=== PATIENT | male | born 1945 | race Caucasian/White ===

== ENCOUNTER → 2017-04-01 | Outpatient (CLI) | payer MEDICARE | LOC: MW.CHGS 08:00 | PROVIDERS: ATTEND Surgery | DX: C32.9 Malignant neoplasm of larynx, unspecified (principal) | CPT/HCPCS: 99214 ==

== ENCOUNTER 2017-04-16 11:39 | Day surgery (SDC) | payer MEDICARE ==
[~2017-04-16 11:39] MED LIST: Lactated Ringers 1,000 ML IV SCH; Propofol 200 MG/20 ML SDV ONE; Sodium Chloride 0.9% 10 ML Syringe FLUSH PRN; Sodium Chloride 0.9% 2.5 ML Syringe FLUSH PRN
--- NOTE | 2017-04-16 12:52 | PCM.PREANE ---
Preanesthetic Assessment - Anesthesia/Transfusion/Family Hx Anesthesia History: Prior Anesthesia Without Reaction Other Type of Anesthesia Reaction Comment: Denies any known problems in the past Family History of Anesthesia Reaction: No Transfusion History: No Prior Transfusion(s) Intubation History: Unknown - Review of Systems General: No Symptoms Pulmonary: No Symptoms Cardiovascular: No Symptoms Neurological: No Symptoms Other: Reports: None - Physical Assessment O2 Sat by Pulse Oximetry: 96 Respiratory Rate: 16 Vital Signs: Last Vital Signs Temp 36.6 C 04/16/17 11:58 Pulse 74 04/16/17 11:58 Resp 16 04/16/17 11:58 BP 132/79 04/16/17 11:58 Pulse Ox 96 04/16/17 11:58 Height: 1.8 m Weight: 93.44 kg ASA Class: 3 Mental Status: Alert & Oriented x3 Airway Class: Mallampati = 2 Dentition: Reports: Normal Dentition Thyro-Mental Finger Breadths: 3 Mouth Opening Finger Breadths: 2 ROM/Head Extension: Limited/Partial Lungs: Clear to auscultation, Normal respiratory effort Cardiovascular: Regular Rate, Regular Rhythm - Allergies Allergies/Adverse Reactions: Allergies Allergy/AdvReac Type Severity Reaction Status Date / Time amoxicillin Allergy Nausea and Verified 04/14/17 17:06 Vomiting enalapril maleate Allergy Rash Verified 04/14/17 17:06 [From Vasotec] enalaprilat dihydrate Allergy Rash Verified 04/14/17 17:06 [From Vasotec] - Blood Blood Available: No - Anesthesia Plan Pre-Op Medication Ordered: None Beta Orestes: Carvedilol Med Last Dose Date: 04/16/17 Med Last Dose Time: 06:00 - Acknowledgements Anesthesia Type Planned: MAC Pt an Appropriate Candidate for the Planned Anesthesia: Yes Alternatives and Risks of Anesthesia Discussed w Pt/Guardian: Yes Pt/Guardian Understands and Agrees with Anesthesia Plan: Yes PreAnesthesia Questionnaire HEENT History: Reports: Allergic Rhinitis, Cataract, Impaired Vision, Other ( See Below) Other HEENT History: wears glasses, hx of fractured nose Cardiovascular History: Reports: CAD, High Cholesterol, Hypertension, VT Other Cardiovascular History: hx of VT 6 years ago, denies current chest pain and SOB Respiratory History: Reports: None Gastrointestinal History: Reports: Other (See Below) Other Gastrointestinal History: hx of colon cancer Genitourinary History: Reports: None Musculoskeletal History: Reports: Arthritis, Fracture, Gout Other Musculoskeletal History: 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 Hx of sigmoid colon cancer. Dermatologic History: Reports: None - Past Surgical History Head Surgeries/Procedures: Reports: None HEENT Surgical History: Reports: Cataract Surgery, Tonsillectomy, Other (See Below) Other HEENT Surgeries/Procedures: hx of cancer of the larynx Cardiovascular Surgical History: Reports: Coronary Artery Stent Respiratory Surgical History: Reports: None GI Surgical History: Reports: Colon (sigmoid colon resection for cancer, PEG tube placement), Colonoscopy, EGD, Hernia, Abdominal, Other (See Below) Other GI Surgeries/Procedures: sigmoid colon resection, insertion and removal of gastrostomy tube Male Surgical History: Reports: None Endocrine Surgical History: Reports: None Neurological Surgical History: Reports: None Musculoskeletal Surgical History: Reports: None Oncologic Surgical History: Reports: Other (See Below) Other Oncologic Surgeries/Procedures: sigmoid colon resection Dermatological Surgical History: Reports: None - SUBSTANCE USE Smoking Status *Q: Former Smoker Tobacco Use Within Last Twelve Months: No Days Per Week of Alcohol Use: 7 Number of Drinks Per Day: 4 Total Drinks Per Week: 28 Recreational Drug Use History: No - HOME MEDS Home Medications: Home Meds Allopurinol [Allopurinol] 100 mg PO DAILY 09/14/14 [History] Aspirin/Calcium Carbonate/Mag [Aspirin Buffered 325 mg Tab] 325 mg PO DAILY [History] Calcium Carbonate [Tums Extra Strength] 2 tab PO ASDIRECTED PRN 09/14/14 [ History] Calcium Polycarbophil [Fibercon] 4 tab PO DAILY 09/14/14 [History] Carvedilol [Carvedilol] 25 mg PO BID 09/14/14 [History] Cholecalciferol (Vitamin D3) [Vitamin D] 1,000 unit PO DAILY 09/14/14 [History] Colchicine [Colcrys] 1 tab PO BID 09/14/14 [History] Cyanocobalamin (Vitamin B12) [Vitamin B12] 500 mcg PO DAILY 04/14/17 [History] Furosemide 0.5 mg PO ASDIRECTED PRN 04/14/17 [History] Lisinopril 5 mg PO DAILY 04/14/17 [History] Loperamide HCl [Imodium A-D] 2 mg PO ASDIRECTED PRN 04/14/17 [History] Ranitidine HCl 150 mg PO ASDIRECTED PRN 04/14/17 [History] atorvaSTATin [Lipitor] 10 mg PO DAILY 04/14/17 [History] - CURRENT (IN HOUSE) MEDS Current Meds: Current Medications Lactated Ringer's (Ringers, Lactated) 1,000 mls @ 125 mls/hr IV ASDIRECTED MARK Last Admin: 04/16/17 12:00 Dose: 125 mls/hr Sodium Chloride (Saline Flush) 10 ml FLUSH ASDIRECTED PRN PRN Reason: Keep Vein Open Sodium Chloride (Saline Flush) 2.5 ml FLUSH ASDIRECTED PRN PRN Reason: Keep Vein Open Discontinued Medications Propofol (Diprivan 20 Ml) Confirm Administered Dose 200 mg .ROUTE .STK-MED ONE Stop: 04/16/17 06:54
--- NOTE | 2017-04-16 13:35 | PCM.OPNOTE ---
- General Post-Op/Procedure Note Date of Surgery/Procedure: 04/16/17 Operative Procedure(s): Diagnostic EGD Findings: Esophageal mucosa in mid esophagus appeared to be plaque like in nature. Biopsies taken from this area as it corresponds to the area on PET scan. Hiatal hernia. Pre Op Diagnosis: Esophageal lesion on PET Post-Op Diagnosis: Mucosal changes in mid esophagus, hiatal hernia Anesthesia Technique: MAC Primary Surgeon: Jessie Conklin Condition: Good
--- NOTE | 2017-04-16 13:50 | PCM.POSTAN ---
POST ANESTHESIA ASSESSMENT - MENTAL STATUS Mental Status: alert, oriented - RESPIRATORY Respiratory Status: respiratory rate WNL, airway patent, O2 saturation stable - CARDIOVASCULAR CV Status: pulse rate WNL, blood pressure stable - GASTROINTESTINAL GI Status: no symptoms - POST OP HYDRATION Hydration Status: adequate & stable - OBSERVATIONS Free Text/Narrative:: no anesthesia problems
[2017-04-16 13:57] VITALS: BP 132/72
--- NOTE | 2017-04-16 14:46 | PCM48HPAN ---
Post Anesthesia Note - EVALUATION WITHIN 48HRS OF ANESTHETIC Vital Signs in Normal Range: Yes Patient Participated in Evaluation: Yes Respiratory Function Stable: Yes Airway Patent: Yes Cardiovascular Function Stable: Yes Hydration Status Stable: Yes Pain Control Satisfactory: Yes Nausea and Vomiting Control Satisfactory: Yes Mental Status Recovered: Yes
--- NOTE | 2017-04-16 19:38 | OR ---
SURGEON: FARIDEH CHAPPELL MD DATE OF PROCEDURE: 04/16/2017 PREOPERATIVE DIAGNOSIS: Esophageal lesion. POSTOPERATIVE DIAGNOSES: Esophageal lesion, hiatal hernia. PROCEDURE PERFORMED: Diagnostic esophagogastroduodenoscopy with biopsies. INSTRUMENT USED: Olympus endoscope. ANESTHESIA: MAC. EXTENT OF EXAM: To the second portion of duodenum. PREPARATION: Good. LIMITATIONS: None. INDICATIONS: The patient is a 71-year-old male with a history of cancer of the larynx. For the past 2 years, he has had a lesion noted on PET scan that lights up in the midesophagus. The patient came to see me for possible EGD. After reviewing the images, the decision was made to perform a diagnostic EGD with biopsies of the area. We discussed the procedure as well as expected perioperative course. We discussed the risks, including bleeding, infection, or damage to surrounding structures, including perforation. The patient verbalized understanding and wished to proceed. PROCEDURE IN DETAIL: The patient was brought to the endoscopy suite and placed in a beach chair position. A time-out was completed verifying the patient's name, age, date of , allergies, and procedure to be performed. A bite-block was placed in the patient's mouth and monitored anesthesia care was induced. Continuous oxygen was provided via nasal cannula throughout the procedure. After adequate sedation was achieved, the Olympus endoscope was placed over the patient's tongue and advanced under direct visualization to the second portion of the duodenum. Photograph was taken of the second portion of duodenum. The scope was then pulled back while examining the mucosa of the upper GI tract. The duodenum appeared normal. The scope was brought into the stomach and a photograph was taken of the pylorus and the esophageal hiatus. The patient has a type 1 hiatal hernia. The gastric mucosa appeared normal. The scope was then brought into the hiatal hernia and a photograph was taken. There were no changes within the hernia sac itself. A single biopsy was taken of the GE junction and sent as distal esophagus mucosa. The scope was then slowly pulled back while examining the remainder of the esophageal mucosa. About the mid esophagus there appeared to be a plaque like lesion that corresponded to the findings on the PET scan. Multiple biopsies were taken of this site and sent as mid esophagus mucosa. All bleeding ceased on its own. The remainder of the esophageal mucosa appeared normal. The scope was removed from the patient and the procedure terminated. ENDOSCOPIC DIAGNOSES: Midesophageal lesion, hiatal hernia. RECOMMENDATION: Follow up in clinic in 2 weeks. ARAMIS LOPEZ /[id number]
== END 2017-04-16 14:05 | disposition home or self-care (01) ==
LOC: MW.SDS 11:39
PROVIDERS: ATTEND Surgery
DX: K22.70 Barrett's esophagus without dysplasia (principal); K44.9 Diaphragmatic hernia without obstruction or gangrene
CPT/HCPCS: 43239; J7120; 00740; 88305; J2704

== ENCOUNTER 2024-09-10 11:52 | Inpatient (IN) | payer MEDICARE, OTHER ==
[2024-09-10] MEDS: Sodium Chloride 0.9% 1,000 ML IV ONE (12:47)
[2024-09-10] MEDS: Morphine 2 MG/ML SYRINGE IVPUSH ONE (12:47)
[2024-09-10] MEDS: Ondansetron 4 MG/2 ML SDV IVPUSH ONE (12:47)
[2024-09-10 12:49] LABS: BASOPHILS ABSOLUTE AUTO 0.01 K/uL (0.00-0.20); BASOPHILS PERCENT AUTO 0.2 % (0.0-1.0); EOSINOPHILS ABSOLUTE AUTO 0.01 K/uL (0.00-0.45); EOSINOPHILS PERCENT AUTO 0.2 % (0.0-6.0); HEMATOCRIT 39.3 % (42.0-52.0); HEMOGLOBIN 13.5 g/dL (14.0-18.0); IMMATURE GRAN ABSOLUTE AUTO 0.01 K/uL (0.00-0.05); IMMATURE GRAN PERCENT AUTO 0.2 % (0.0-0.4); LYMPHOCYTES ABSOLUTE AUTO 0.53 K/uL (1.00-4.80); LYMPHOCYTES PERCENT AUTO 8.3 % (24.0-44.0); MEAN CORPUSCULAR HEMOGLOBIN 34.8 pg (28.0-32.0); MEAN CORPUSCULAR HGB CONC 34.4 g/dL (32.0-36.0); MEAN CORPUSCULAR VOLUME 101.3 fL (83.0-99.0); MEAN PLATELET VOLUME 8.7 fL (9.4-12.4); MONOCYTES ABSOLUTE AUTO 0.76 K/uL (0.00-0.80); MONOCYTES PERCENT AUTO 11.9 % (0.0-8.0); NEUTROPHILS ABSOLUTE AUTO 5.04 K/uL (1.80-7.70); NEUTROPHILS PERCENT AUTO 79.2 % (41.0-71.0); PLATELET COUNT,PLT 131 K/uL (150-400); RED BLOOD CELL COUNT 3.88 M/uL (4.52-5.90); WHITE BLOOD CELL COUNT,WBC 6.36 K/uL (3.9-11.3)
[2024-09-10 13:05] LABS: INR 1.11 (0.86-1.11)
[2024-09-10 13:12] LABS: ALBUMIN 3.3 g/dL (3.4-5.0); BILIRUBIN TOTAL 2.7 mg/dL (0.2-1.0); CALCIUM 8.9 mg/dL (8.5-10.1); CARBON DIOXIDE,CO2 28.4 mmol/L (21.0-32.0); CREATININE 1.2 mg/dL (0.8-1.3); EST CRCL DRUG DOSING (CG) 51.42 mL/min; POTASSIUM,K 3.7 mmol/L (3.5-5.1); PROTEIN TOTAL,TP 6.5 g/dL (6.4-8.2)
[2024-09-10] MEDS: Iopamidol 755 MG/ML 500 ML Multipack Bottle IVPUSH STA (15:56)
[2024-09-10] MEDS ORDERED: Ondansetron 4 MG Tab.DIS PO PRN (18:24)
[2024-09-10] MEDS ORDERED: Naloxone 0.4 MG/ML SDV IVPUSH PRN (18:24)
[2024-09-10] MEDS ORDERED: oxyCODONE 5 MG Tab PO PRN (18:24)
[2024-09-10] MEDS: Enoxaparin 40 MG/0.4 ML Syringe SUBCUT SCH (20:44)
[2024-09-10] MEDS: Sodium Chloride 0.9% 1,000 ML IV SCH (22:12)
[2024-09-11] MEDS: Morphine 2 MG/ML SYRINGE IVPUSH PRN (01:52)
[2024-09-11] MEDS: Pantoprazole 40 MG Tab.CR PO SCH (06:30)
[2024-09-11 06:39] LABS: BASOPHILS ABSOLUTE AUTO 0.02 K/uL (0.00-0.20); BASOPHILS PERCENT AUTO 0.4 % (0.0-1.0); EOSINOPHILS ABSOLUTE AUTO 0.02 K/uL (0.00-0.45); EOSINOPHILS PERCENT AUTO 0.4 % (0.0-6.0); HEMATOCRIT 37.8 % (42.0-52.0); HEMOGLOBIN 12.7 g/dL (14.0-18.0); IMMATURE GRAN ABSOLUTE AUTO 0.01 K/uL (0.00-0.05); IMMATURE GRAN PERCENT AUTO 0.2 % (0.0-0.4); LYMPHOCYTES ABSOLUTE AUTO 0.65 K/uL (1.00-4.80); LYMPHOCYTES PERCENT AUTO 12.5 % (24.0-44.0); MEAN CORPUSCULAR HEMOGLOBIN 34.7 pg (28.0-32.0); MEAN CORPUSCULAR HGB CONC 33.6 g/dL (32.0-36.0); MEAN CORPUSCULAR VOLUME 103.3 fL (83.0-99.0); MEAN PLATELET VOLUME 9.6 fL (9.4-12.4); MONOCYTES ABSOLUTE AUTO 0.69 K/uL (0.00-0.80); MONOCYTES PERCENT AUTO 13.2 % (0.0-8.0); NEUTROPHILS ABSOLUTE AUTO 3.82 K/uL (1.80-7.70); NEUTROPHILS PERCENT AUTO 73.3 % (41.0-71.0); PLATELET COUNT,PLT 105 K/uL (150-400); RED BLOOD CELL COUNT 3.66 M/uL (4.52-5.90); WHITE BLOOD CELL COUNT,WBC 5.21 K/uL (3.9-11.3)
[2024-09-11 06:47] LABS: INR 1.11 (0.86-1.11)
[2024-09-11 07:18] LABS: A/G RATIO 0.9 (0.9-1.6); BILIRUBIN TOTAL 2.1 mg/dL (0.2-1.0); CALCIUM 8.5 mg/dL (8.5-10.1); EST CRCL DRUG DOSING (CG) 61.7 mL/min; POTASSIUM,K 4.1 mmol/L (3.5-5.1); PROTEIN TOTAL,TP 6.2 g/dL (6.4-8.2)
[2024-09-11] MEDS: Carvedilol 6.25 MG Tab PO SCH (08:00)
[2024-09-11] MEDS: Acetaminophen 325 MG Tab PO PRN (08:08)
[2024-09-11] MEDS ORDERED: atorvaSTATin 10 MG Tab PO SCH (09:00)
[2024-09-11] MEDS: atorvaSTATin 10 MG Tab PO SCH (20:46)
[2024-09-12 06:20] LABS: BASOPHILS ABSOLUTE AUTO 0.01 K/uL (0.00-0.20); BASOPHILS PERCENT AUTO 0.2 % (0.0-1.0); EOSINOPHILS ABSOLUTE AUTO 0.04 K/uL (0.00-0.45); EOSINOPHILS PERCENT AUTO 0.8 % (0.0-6.0); HEMATOCRIT 35.8 % (42.0-52.0); HEMOGLOBIN 12.3 g/dL (14.0-18.0); IMMATURE GRAN ABSOLUTE AUTO 0.02 K/uL (0.00-0.05); IMMATURE GRAN PERCENT AUTO 0.4 % (0.0-0.4); LYMPHOCYTES ABSOLUTE AUTO 0.54 K/uL (1.00-4.80); LYMPHOCYTES PERCENT AUTO 10.4 % (24.0-44.0); MEAN CORPUSCULAR HEMOGLOBIN 34.7 pg (28.0-32.0); MEAN CORPUSCULAR HGB CONC 34.4 g/dL (32.0-36.0); MEAN CORPUSCULAR VOLUME 101.1 fL (83.0-99.0); MEAN PLATELET VOLUME 9.4 fL (9.4-12.4); MONOCYTES ABSOLUTE AUTO 0.59 K/uL (0.00-0.80); MONOCYTES PERCENT AUTO 11.3 % (0.0-8.0); NEUTROPHILS ABSOLUTE AUTO 4.01 K/uL (1.80-7.70); NEUTROPHILS PERCENT AUTO 76.9 % (41.0-71.0); PLATELET COUNT,PLT 116 K/uL (150-400); RED BLOOD CELL COUNT 3.54 M/uL (4.52-5.90); WHITE BLOOD CELL COUNT,WBC 5.21 K/uL (3.9-11.3)
[2024-09-12 06:50] LABS: CALCIUM 8.6 mg/dL (8.5-10.1); CARBON DIOXIDE,CO2 25.4 mmol/L (21.0-32.0); CREATININE 0.9 mg/dL (0.8-1.3); EST CRCL DRUG DOSING (CG) 68.56 mL/min; POTASSIUM,K 3.5 mmol/L (3.5-5.1)
[2024-09-13 06:36] LABS: BASOPHILS ABSOLUTE AUTO 0.02 K/uL (0.00-0.20); BASOPHILS PERCENT AUTO 0.4 % (0.0-1.0); EOSINOPHILS ABSOLUTE AUTO 0.05 K/uL (0.00-0.45); EOSINOPHILS PERCENT AUTO 1.1 % (0.0-6.0); HEMATOCRIT 36.7 % (42.0-52.0); HEMOGLOBIN 12.6 g/dL (14.0-18.0); IMMATURE GRAN ABSOLUTE AUTO 0.01 K/uL (0.00-0.05); IMMATURE GRAN PERCENT AUTO 0.2 % (0.0-0.4); LYMPHOCYTES ABSOLUTE AUTO 0.56 K/uL (1.00-4.80); LYMPHOCYTES PERCENT AUTO 11.9 % (24.0-44.0); MEAN CORPUSCULAR HEMOGLOBIN 34.8 pg (28.0-32.0); MEAN CORPUSCULAR HGB CONC 34.3 g/dL (32.0-36.0); MEAN CORPUSCULAR VOLUME 101.4 fL (83.0-99.0); MEAN PLATELET VOLUME 9.1 fL (9.4-12.4); MONOCYTES ABSOLUTE AUTO 0.59 K/uL (0.00-0.80); MONOCYTES PERCENT AUTO 12.6 % (0.0-8.0); NEUTROPHILS ABSOLUTE AUTO 3.47 K/uL (1.80-7.70); NEUTROPHILS PERCENT AUTO 73.8 % (41.0-71.0); PLATELET COUNT,PLT 122 K/uL (150-400); RED BLOOD CELL COUNT 3.62 M/uL (4.52-5.90)
[2024-09-13 07:06] LABS: CALCIUM 8.6 mg/dL (8.5-10.1); CARBON DIOXIDE,CO2 25.9 mmol/L (21.0-32.0); CREATININE 0.9 mg/dL (0.8-1.3); EST CRCL DRUG DOSING (CG) 68.56 mL/min; POTASSIUM,K 3.5 mmol/L (3.5-5.1)
[2024-09-13] MEDS: Polyethylene Glycol 3350 Powder 17 GM Packet PO SCH (12:08)
[2024-09-14 08:12] LABS: BASOPHILS ABSOLUTE AUTO 0.02 K/uL (0.00-0.20); BASOPHILS PERCENT AUTO 0.4 % (0.0-1.0); EOSINOPHILS ABSOLUTE AUTO 0.11 K/uL (0.00-0.45); EOSINOPHILS PERCENT AUTO 2.1 % (0.0-6.0); HEMATOCRIT 36.5 % (42.0-52.0); HEMOGLOBIN 12.8 g/dL (14.0-18.0); IMMATURE GRAN ABSOLUTE AUTO 0.01 K/uL (0.00-0.05); IMMATURE GRAN PERCENT AUTO 0.2 % (0.0-0.4); LYMPHOCYTES ABSOLUTE AUTO 0.66 K/uL (1.00-4.80); LYMPHOCYTES PERCENT AUTO 12.5 % (24.0-44.0); MEAN CORPUSCULAR HEMOGLOBIN 35.3 pg (28.0-32.0); MEAN CORPUSCULAR HGB CONC 35.1 g/dL (32.0-36.0); MEAN CORPUSCULAR VOLUME 100.6 fL (83.0-99.0); MEAN PLATELET VOLUME 8.9 fL (9.4-12.4); MONOCYTES ABSOLUTE AUTO 0.59 K/uL (0.00-0.80); MONOCYTES PERCENT AUTO 11.2 % (0.0-8.0); NEUTROPHILS PERCENT AUTO 73.6 % (41.0-71.0); PLATELET COUNT,PLT 125 K/uL (150-400); RED BLOOD CELL COUNT 3.63 M/uL (4.52-5.90); WHITE BLOOD CELL COUNT,WBC 5.29 K/uL (3.9-11.3)
[2024-09-14 08:34] LABS: A/G RATIO 0.8 (0.9-1.6); ALBUMIN 2.9 g/dL (3.4-5.0); BILIRUBIN TOTAL 1.7 mg/dL (0.2-1.0); CALCIUM 8.8 mg/dL (8.5-10.1); CARBON DIOXIDE,CO2 28.4 mmol/L (21.0-32.0); EST CRCL DRUG DOSING (CG) 61.7 mL/min; PROTEIN TOTAL,TP 6.6 g/dL (6.4-8.2)
[2024-09-14] MEDS: Aspirin 81 MG Tab.Chew PO SCH (09:27)
[2024-09-14] MEDS: Allopurinol 100 MG Tab PO SCH (09:28)
[2024-09-14] MEDS: Pantoprazole 40 MG Tab.CR PO SCH (09:29)
[2024-09-15 05:28] LABS: BASOPHILS ABSOLUTE AUTO 0.02 K/uL (0.00-0.20); BASOPHILS PERCENT AUTO 0.5 % (0.0-1.0); EOSINOPHILS ABSOLUTE AUTO 0.14 K/uL (0.00-0.45); EOSINOPHILS PERCENT AUTO 3.5 % (0.0-6.0); HEMATOCRIT 35.4 % (42.0-52.0); HEMOGLOBIN 12.1 g/dL (14.0-18.0); IMMATURE GRAN ABSOLUTE AUTO 0.01 K/uL (0.00-0.05); IMMATURE GRAN PERCENT AUTO 0.3 % (0.0-0.4); LYMPHOCYTES ABSOLUTE AUTO 0.66 K/uL (1.00-4.80); LYMPHOCYTES PERCENT AUTO 16.5 % (24.0-44.0); MEAN CORPUSCULAR HEMOGLOBIN 34.5 pg (28.0-32.0); MEAN CORPUSCULAR HGB CONC 34.2 g/dL (32.0-36.0); MEAN CORPUSCULAR VOLUME 100.9 fL (83.0-99.0); MEAN PLATELET VOLUME 8.9 fL (9.4-12.4); NEUTROPHILS ABSOLUTE AUTO 2.76 K/uL (1.80-7.70); NEUTROPHILS PERCENT AUTO 69.2 % (41.0-71.0); PLATELET COUNT,PLT 112 K/uL (150-400); RED BLOOD CELL COUNT 3.51 M/uL (4.52-5.90); WHITE BLOOD CELL COUNT,WBC 3.99 K/uL (3.9-11.3)
[2024-09-15 06:07] LABS: A/G RATIO 0.7 (0.9-1.6); ALBUMIN 2.6 g/dL (3.4-5.0); BILIRUBIN TOTAL 1.4 mg/dL (0.2-1.0); CALCIUM 9.1 mg/dL (8.5-10.1); CARBON DIOXIDE,CO2 28.2 mmol/L (21.0-32.0); EST CRCL DRUG DOSING (CG) 61.7 mL/min; PROTEIN TOTAL,TP 6.2 g/dL (6.4-8.2)
[2024-09-16 05:37] LABS: BASOPHILS ABSOLUTE AUTO 0.02 K/uL (0.00-0.20); BASOPHILS PERCENT AUTO 0.5 % (0.0-1.0); EOSINOPHILS ABSOLUTE AUTO 0.13 K/uL (0.00-0.45); EOSINOPHILS PERCENT AUTO 3.2 % (0.0-6.0); HEMATOCRIT 33.3 % (42.0-52.0); HEMOGLOBIN 11.5 g/dL (14.0-18.0); IMMATURE GRAN ABSOLUTE AUTO 0.02 K/uL (0.00-0.05); IMMATURE GRAN PERCENT AUTO 0.5 % (0.0-0.4); LYMPHOCYTES ABSOLUTE AUTO 0.77 K/uL (1.00-4.80); LYMPHOCYTES PERCENT AUTO 18.7 % (24.0-44.0); MEAN CORPUSCULAR HEMOGLOBIN 34.5 pg (28.0-32.0); MEAN CORPUSCULAR HGB CONC 34.5 g/dL (32.0-36.0); MONOCYTES ABSOLUTE AUTO 0.55 K/uL (0.00-0.80); MONOCYTES PERCENT AUTO 13.3 % (0.0-8.0); NEUTROPHILS ABSOLUTE AUTO 2.63 K/uL (1.80-7.70); NEUTROPHILS PERCENT AUTO 63.8 % (41.0-71.0); PLATELET COUNT,PLT 128 K/uL (150-400); RED BLOOD CELL COUNT 3.33 M/uL (4.52-5.90); WHITE BLOOD CELL COUNT,WBC 4.12 K/uL (3.9-11.3)
[2024-09-16 05:58] LABS: A/G RATIO 0.8 (0.9-1.6); ALBUMIN 2.7 g/dL (3.4-5.0); BILIRUBIN TOTAL 1.4 mg/dL (0.2-1.0); CALCIUM 8.9 mg/dL (8.5-10.1); CARBON DIOXIDE,CO2 29.2 mmol/L (21.0-32.0); EST CRCL DRUG DOSING (CG) 61.7 mL/min
[2024-09-16] MEDS ORDERED: Polyethylene Glycol 3350 Powder 17 GM Packet PO PRN (11:03)
[2024-09-16] MEDS: Calcium Carbonate/Vitamin D3 1500 MG-400 Units Tab PO SCH (13:42)
[2024-09-17 05:59] LABS: BASOPHILS ABSOLUTE AUTO 0.01 K/uL (0.00-0.20); BASOPHILS PERCENT AUTO 0.3 % (0.0-1.0); EOSINOPHILS ABSOLUTE AUTO 0.12 K/uL (0.00-0.45); HEMATOCRIT 34.3 % (42.0-52.0); HEMOGLOBIN 11.8 g/dL (14.0-18.0); LYMPHOCYTES ABSOLUTE AUTO 0.75 K/uL (1.00-4.80); MEAN CORPUSCULAR HEMOGLOBIN 34.7 pg (28.0-32.0); MEAN CORPUSCULAR HGB CONC 34.4 g/dL (32.0-36.0); MEAN CORPUSCULAR VOLUME 100.9 fL (83.0-99.0); MEAN PLATELET VOLUME 8.6 fL (9.4-12.4); MONOCYTES PERCENT AUTO 12.7 % (0.0-8.0); NEUTROPHILS ABSOLUTE AUTO 2.57 K/uL (1.80-7.70); PLATELET COUNT,PLT 138 K/uL (150-400); WHITE BLOOD CELL COUNT,WBC 3.95 K/uL (3.9-11.3)
[2024-09-17 06:22] LABS: CALCIUM 8.8 mg/dL (8.5-10.1); CARBON DIOXIDE,CO2 29.5 mmol/L (21.0-32.0); EST CRCL DRUG DOSING (CG) 61.7 mL/min
[2024-09-17] MEDS: Docusate Sodium 100 MG Cap PO SCH (08:27)
[2024-09-19 07:40] LABS: BASOPHILS ABSOLUTE AUTO 0.01 K/uL (0.00-0.20); BASOPHILS PERCENT AUTO 0.3 % (0.0-1.0); EOSINOPHILS ABSOLUTE AUTO 0.08 K/uL (0.00-0.45); EOSINOPHILS PERCENT AUTO 2.4 % (0.0-6.0); HEMATOCRIT 31.9 % (42.0-52.0); HEMOGLOBIN 11.1 g/dL (14.0-18.0); IMMATURE GRAN ABSOLUTE AUTO 0.01 K/uL (0.00-0.05); IMMATURE GRAN PERCENT AUTO 0.3 % (0.0-0.4); LYMPHOCYTES ABSOLUTE AUTO 0.71 K/uL (1.00-4.80); LYMPHOCYTES PERCENT AUTO 21.5 % (24.0-44.0); MEAN CORPUSCULAR HGB CONC 34.8 g/dL (32.0-36.0); MEAN CORPUSCULAR VOLUME 100.6 fL (83.0-99.0); MEAN PLATELET VOLUME 8.8 fL (9.4-12.4); MONOCYTES ABSOLUTE AUTO 0.44 K/uL (0.00-0.80); MONOCYTES PERCENT AUTO 13.3 % (0.0-8.0); NEUTROPHILS ABSOLUTE AUTO 2.06 K/uL (1.80-7.70); NEUTROPHILS PERCENT AUTO 62.2 % (41.0-71.0); PLATELET COUNT,PLT 161 K/uL (150-400); RED BLOOD CELL COUNT 3.17 M/uL (4.52-5.90); WHITE BLOOD CELL COUNT,WBC 3.31 K/uL (3.9-11.3)
[2024-09-19 08:03] LABS: CALCIUM 8.9 mg/dL (8.5-10.1); CARBON DIOXIDE,CO2 29.5 mmol/L (21.0-32.0); EST CRCL DRUG DOSING (CG) 61.7 mL/min
[2024-09-20 05:54] LABS: BASOPHILS ABSOLUTE AUTO 0.01 K/uL (0.00-0.20); BASOPHILS PERCENT AUTO 0.2 % (0.0-1.0); EOSINOPHILS ABSOLUTE AUTO 0.08 K/uL (0.00-0.45); EOSINOPHILS PERCENT AUTO 1.7 % (0.0-6.0); HEMATOCRIT 33.3 % (42.0-52.0); HEMOGLOBIN 11.6 g/dL (14.0-18.0); IMMATURE GRAN ABSOLUTE AUTO 0.01 K/uL (0.00-0.05); IMMATURE GRAN PERCENT AUTO 0.2 % (0.0-0.4); LYMPHOCYTES ABSOLUTE AUTO 0.86 K/uL (1.00-4.80); LYMPHOCYTES PERCENT AUTO 18.7 % (24.0-44.0); MEAN CORPUSCULAR HEMOGLOBIN 35.5 pg (28.0-32.0); MEAN CORPUSCULAR HGB CONC 34.8 g/dL (32.0-36.0); MEAN CORPUSCULAR VOLUME 101.8 fL (83.0-99.0); MEAN PLATELET VOLUME 8.8 fL (9.4-12.4); MONOCYTES ABSOLUTE AUTO 0.58 K/uL (0.00-0.80); MONOCYTES PERCENT AUTO 12.6 % (0.0-8.0); NEUTROPHILS ABSOLUTE AUTO 3.05 K/uL (1.80-7.70); NEUTROPHILS PERCENT AUTO 66.6 % (41.0-71.0); PLATELET COUNT,PLT 181 K/uL (150-400); RED BLOOD CELL COUNT 3.27 M/uL (4.52-5.90); WHITE BLOOD CELL COUNT,WBC 4.59 K/uL (3.9-11.3)
[2024-09-20 06:31] LABS: A/G RATIO 0.9 (0.9-1.6); ALBUMIN 2.9 g/dL (3.4-5.0); CALCIUM 9.3 mg/dL (8.5-10.1); CARBON DIOXIDE,CO2 29.7 mmol/L (21.0-32.0); EST CRCL DRUG DOSING (CG) 61.7 mL/min; POTASSIUM,K 4.2 mmol/L (3.5-5.1); PROTEIN TOTAL,TP 6.3 g/dL (6.4-8.2)
[2024-09-20 12:39] VITALS: BP 147/72; PULSE 74
== END 2024-09-20 12:40 | DRG 551 ==
LOC: MW.ED 11:52 → MW.MS 17:09
PROVIDERS: ADMIT Internal Medicine; ATTEND Internal Medicine
DX: S72.002A Fracture of unspecified part of neck of left femur, initial encounter for closed fracture (principal); S32.9XXA Fracture of unspecified parts of lumbosacral spine and pelvis, initial encounter for closed fracture; S12.100A Unspecified displaced fracture of second cervical vertebra, initial encounter for closed fracture; S32.415A Nondisplaced fracture of anterior wall of left acetabulum, initial encounter for closed fracture; S32.302A Unspecified fracture of left ilium, initial encounter for closed fracture; S12.001A Unspecified nondisplaced fracture of first cervical vertebra, initial encounter for closed fracture; Z66 Do not resuscitate; Z95.1 Presence of aortocoronary bypass graft; M47.812 Spondylosis without myelopathy or radiculopathy, cervical region; I10 Essential (primary) hypertension; W18.30XA Fall on same level, unspecified, initial encounter; D69.6 Thrombocytopenia, unspecified; E78.00 Pure hypercholesterolemia, unspecified; D64.9 Anemia, unspecified; I25.2 Old myocardial infarction; I25.10 Atherosclerotic heart disease of native coronary artery without angina pectoris; M19.90 Unspecified osteoarthritis, unspecified site; M10.9 Gout, unspecified; C32.9 Malignant neoplasm of larynx, unspecified; H54.7 Unspecified visual loss; R74.8 Abnormal levels of other serum enzymes; Z95.5 Presence of coronary angioplasty implant and graft; Z88.0 Allergy status to penicillin; Z88.8 Allergy status to other drugs, medicaments and biological substances; Z79.82 Long term (current) use of aspirin; Z79.899 Other long term (current) drug therapy; Z98.49 Cataract extraction status, unspecified eye; Z90.89 Acquired absence of other organs; Z98.890 Other specified postprocedural states; Z85.038 Personal history of other malignant neoplasm of large intestine; W01.0XXA Fall on same level from slipping, tripping and stumbling without subsequent striking against object, initial encounter
CPT/HCPCS: 36415; 70450; 71260; 72125; 72192; 73620; 73700; 74177; 80053; 82550; 85025; 85610; 93005; 96374; 96375; 99285; J2270; J2405; J7030; Q9967; 72131-26; 80048; 83735; 93010; 97110-GP; 97163-GP; 97165-GO; 97530-GP; A9270-GY; J1650